=== PATIENT | female | born 2000 | race Caucasian/White ===

== ENCOUNTER → 2022-03-03 | Outpatient (CLI) | payer MEDICAID ==
--- NOTE | 2022-03-03 16:57 | US ---
EXAMINATION TYPE: Transabdominal DATE OF EXAM: 03/03/2022 4:32 PM COMPARISON: NONE CLINICAL HISTORY: Z36.89 Confirm gestational age and viability. Confirm dates EXAM PERFORMED: Transabdominal (TA) EXAM MEASUREMENTS: GESTATIONAL AGE / DATING Physician Established: Not yet established Dates by LMP: (12 weeks/6 days) EDC: 09/09/2022 Dates by First Scan: No previous this is first scan Dates by Current Scan for: (12 weeks/4 days) EDC: 09/11/2022 MATERNAL ANATOMY Uterus: 12.5 x 6.4 x 7.4 cm Right Ovary: 3.5 x 2.3 x 2.7 cm Left Ovary: 2.2 x 1.9 x 2.2 cm Post CDS / Adnexa: wnl Presence of free fluid: no Presence of corpus luteal cyst: no Presence of subchorionic bleed: no GESTATION / SURVEY CRL: 6.21 cm (12 weeks/4 days) Heart Rate: 157 bpm Rhythm: Normal IUP: Viable IUP IMPRESSION: Single viable intrauterine .
== END | disposition home or self-care (01) ==
LOC: RADUSWWP 16:06
PROVIDERS: ATTEND Obstetrics & Gynecology
DX: Z36.89 Encounter for other specified antenatal screening (principal); Z3A.12 12 weeks gestation of pregnancy
CPT/HCPCS: 76801

== ENCOUNTER → 2022-03-08 | Outpatient (CLI) | payer MEDICAID ==
[2022-03-09 01:37] LABS: HCT 37.7 % (37.2-46.3); HGB 12.3 g/dL (12.0-15.0); MCH 29.2 pg (27.0-32.0); MCHC 32.6 g/dL (32.0-37.0); MCV 89.5 fL (80.0-97.0); Mean Platelet Volume 10.4 fL (9.5-12.2); NRBC Per 100 WBC 0 /100 WBCS (0.0-0.0); Platelet Count 334 X 10*3/uL (140-440); RBC 4.21 X 10*6/uL (4.10-5.20); RDW 12.2 % (11.5-14.5); WBC 11.65 X 10*3/uL (4.50-10.00)
[2022-03-09 03:00] LABS: African American GFR (CKD) 140.1 (60.0-200.0); Non-African American GFR(CKD) 120.9 (60.0-200.0); T4, Free (Free Thyroxine) 1.34 ng/dL (0.800-1.800)
[2022-03-09 04:06] LABS: Hepatitis BE Antigen Nonreactive (Nonreacitve)
[2022-03-09 04:23] LABS: Toxoplasma Antibody (IgG) <3.0 IU/mL (<7.2); Toxoplasma Antibody (IgM) <3.0 AU/mL (<8.0)
[2022-03-09 21:28] LABS: HIV 2 AB Non-Reactive (Non-Reactive); HIV AB P24 Non-Reactive (Non-Reactive); HIV P24 AG Non-Reactive (Non-Reactive)
== END | disposition home or self-care (01) ==
LOC: LABWHC1 15:07
PROVIDERS: ATTEND Obstetrics & Gynecology
DX: Z34.01 Encounter for supervision of normal first pregnancy, first trimester (principal); Z3A.00 Weeks of gestation of pregnancy not specified
CPT/HCPCS: 36415; 82565; 82947; 84439; 84443; 85027; 86762; 86777; 86778; 86780; 86850; 86900; 86901; 87350; 87390

== ENCOUNTER → 2022-04-17 | Outpatient (CLI) | payer MEDICAID ==
--- NOTE | 2022-04-18 07:34 | US ---
EXAMINATION TYPE: US OB anatomy transabd DATE OF EXAM: 04/17/2022 COMPARISON: US 03/03/2022 HISTORY: O36.62X0 LARGE FOR DATES Large for dates. . TECHNIQUE: Transabdominal (TA) EXAM MEASUREMENTS: GESTATIONAL AGE / DATING Physician Established: (19 weeks/2 days) EDC: 09/09/2022 Dates by LMP: (19 weeks/2 days) EDC: 09/09/2022 Dates by First Scan: (19 weeks/0 days) EDC: 09/11/2022 Dates by Current Scan for: (19 weeks/2 days) EDC: 09/09/2022 SURVEY IUP: Single PLACENTA: Anterior. Hypoechoic area seen lower placenta measuring 3.5 cm. PREVIA: No previa ROBIN: 12.3 cm Normal CERVICAL LENGTH (transabdominal: norm > 3.0cm): 3.9 cm BIOMETRY PRESENTATION: Variable LIE: Transverse lie with head maternal Left BPD: 4.4 cm 19 weeks / 3 days HC: 17.6 cm 20 weeks / 1 day AC: 14.7 cm 20 weeks / 0 days FL: 2.4 cm 17 weeks / 2 days ESTIMATED WEIGHT IN GRAMS: 261 grams ESTIMATED WEIGHT IN LBS/OZ: 0 lbs. 9 oz. WEIGHT PERCENTAGE BASED ON ESTABLISHED DATE: 23 % HC/AC: 1.20 Normal FL/AC: 16% HEART RATE: 144 bpm RHYTHM: Normal ANATOMY SEEN (within normal limits): * Lateral Vent (< 1 cm) 0.67 cm * Cisterna Magna (< 1.1 cm) 0.54 cm * Nuchal Fold (< 0.6 cm) 0.30 cm * Cerebellum (varies with age) 2.07 cm Choroid Plexus (bilateral) Midline Falx Cavus Septi Pellucidi Four Chamber Heart Stomach Situs Nose / Lips Diaphragm Kidneys (bilateral) Bladder Cord Insert Three Vessel Cord Longitudinal Spine Transverse Spine Arms (bilateral) Legs (bilateral) ANATOMY SEEN (does not appear within normal limits): Internal echoes visualized within the stomach. Femur length appears smaller in size in comparison to other growth parameters. ANATOMY NOT SEEN: Outflow tracts: LVOT/RVOT Patient was given scheduling number for an OB call back for additional imaging. Two techs scanned. IMPRESSION: 1. Single live intrauterine with position and establish gestational age of 19 weeks 2 days. Current ultrasound biometry is concordant (19 weeks 3 days) placing the child at the 23rd percentile for weight. 2. A few structures on the survey were suboptimally visualized due to position (LVOT/RVOT). Additionally there is nonspecific internal echoes visualized within the s tomach and femur length appears smaller in size in comparison to other growth parameters. Rescan for suboptimal anatomy can be performed in one to 2 weeks.
== END | disposition home or self-care (01) ==
LOC: RADUSWWP 16:03
PROVIDERS: ATTEND Obstetrics & Gynecology
DX: O36.62X0 Maternal care for excessive fetal growth, second trimester, not applicable or unspecified (principal); Z3A.19 19 weeks gestation of pregnancy
CPT/HCPCS: 76811

== ENCOUNTER → 2022-04-25 | Outpatient (CLI) | payer MEDICAID ==
[2022-04-27 08:56] LABS: Alpha Fetoprotein 93.2 ng/mL; B-HCG (M.O.M.) 4.37; Human Chorionic Gonadotropin 105.7 IU/mL; Inhibin A (M.O.M.) 3.31; Interpretation SeeBelow; Maternal Age at EDD (Yrs) 24; Smoker No; Unconjugated Estriol (M.O.M.) 1.05
== END | disposition home or self-care (01) ==
LOC: LABWHC1 20:57
PROVIDERS: ATTEND Obstetrics & Gynecology
DX: Z34.02 Encounter for supervision of normal first pregnancy, second trimester (principal); Z3A.00 Weeks of gestation of pregnancy not specified
CPT/HCPCS: 36415; 82105; 82677; 84702; 86336

== ENCOUNTER → 2022-05-03 | Outpatient (CLI) | payer MEDICAID ==
--- NOTE | 2022-05-03 12:49 | US ---
EXAMINATION TYPE: US OB Call Back DATE OF EXAM: 05/03/2022 COMPARISON: NONE CLINICAL HISTORY: Z36.87 ENCOUNTER FOR SCREENING. call back for heart, femur and stomach GESTATIONAL AGE / DATING Dates by Initial Survey Scan: (21 weeks/2 days) EDC: 09/09/2022 HEART RATE: 144 bpm RHYTHM: Normal ANATOMY SEEN (second anatomic survey look): Outflow tracts:? LVOT/RVOT- seen, wnl Stomach: appears wnl today Femur length still measuring 2 weeks behind = 19w0d Patient is going for level 3 US at speciality clinic IMPRESSION: 1. Femur length reported 2 weeks behind. Attention on tertiary care ultrasound at specialty clinic. 2. Gastric lumen appears within normal limits.
== END | disposition home or self-care (01) ==
LOC: RADUSWWP 11:08
PROVIDERS: ATTEND Obstetrics & Gynecology
DX: Z36.87 Encounter for antenatal screening for uncertain dates (principal); Z3A.21 21 weeks gestation of pregnancy

== ENCOUNTER → 2022-05-25 | Outpatient (CLI) | payer MEDICAID ==
[2022-05-25 14:30] LABS: HCT 31.7 % (37.2-46.3); HGB 10.7 g/dL (12.0-15.0); MCH 30.7 pg (27.0-32.0); MCHC 33.8 g/dL (32.0-37.0); MCV 90.8 fL (80.0-97.0); Mean Platelet Volume 9.5 fL (9.5-12.2); NRBC Per 100 WBC 0 /100 WBCS (0.0-0.0); Platelet Count 364 X 10*3/uL (140-440); RBC 3.49 X 10*6/uL (4.10-5.20); RDW 12.5 % (11.5-14.5); WBC 10.74 X 10*3/uL (4.50-10.00)
== END | disposition home or self-care (01) ==
LOC: LABWHC1 09:08
PROVIDERS: ATTEND Obstetrics & Gynecology
DX: Z34.03 Encounter for supervision of normal first pregnancy, third trimester (principal); Z3A.00 Weeks of gestation of pregnancy not specified
CPT/HCPCS: 36415; 82950; 85027

== ENCOUNTER 2022-08-16 10:46 | Outpatient (CLI) | payer MEDICAID ==
[2022-08-16 11:31] VITALS: BP 131/65; PULSE 83; RESP 16; TEMP 97.2
--- NOTE | 2022-08-17 21:50 | P.MSEPDOC ---
Presenting Problems - Arrival Data Date of Arrival on Unit: 08/16/22 Time of Arrival on Unit: 10:46 Mode of Transport: Ambulatory - Complaint OB-Reason for Admission/Chief Complaint: NST Comment: diagnosis Q04.0 bi weekly nst, nst reactive and pt dcd home Medical History - Information : 1 Para: 0 Term: 0 : 0 Abortions: Spontaneous or Elective: 0 Number of Living Children: 0 - Gestational Age Gestational Age by EDWARD (wks/days): 36 Weeks and 4 Days - History Complications: Other Comment: possible down syndrome as well as aortic coarctation Review of Systems - Review of Systems Constitutional: No problems Breast: No problems ENT: No problems Cardiovascular: No problems Respiratory: No problems Gastrointestinal: No problems Genitourinary: No problems Musculoskeletal: No problems Neurological: No problems Skin: No problems Vital Signs - Temperature Temperature: 97.2 F Temperature Source: Temporal Artery Scan - Pulse Right Brachial Pulse Rate: 83 Pulse Assessment Method: Automatic Cuff - Respirations Respiratory Rate: 16 Oxygen Delivery Method: Room Air - Blood Pressure Right Arm Blood Pressure: 131/65 Blood Pressure Mean: 87 Blood Pressure Source: Automatic Cuff Medical Screen Scoring - Assessment - Baby A Baseline FHR: 125 Heart Rate - NICHD Category: Category I (Normal) NST: Reactive Physician Notification - Physician Notified Physician Notified Date: 08/16/22 Physician Notified Time: 11:00 Physician: Dr Tania Rock Order Received: Yes (dc home) Maternal Triage Index - Scheduled/Requesting Priority 5 Scheduled/Requesting Priority 5: Yes Criteria Met for Priority 5: biweekly nst Disposition - Disposition OB Disposition: Discharge to home Discharge Date: 08/16/22 Discharge Time: 11:30 I agree with the RN Medical Screening Exam: Yes Case reviewed; plan agreed upon as documented in EMR&OBIX.: Yes Diagnosis: CONGENITAL MALFORMATIONS OF CORPUS CALLOSUM
== END 2022-08-16 11:31 | disposition home or self-care (01) ==
LOC: FBPOP 10:46
PROVIDERS: ATTEND Obstetrics & Gynecology
DX: O35.01 Maternal care for (suspected) central nervous system malformation or damage in fetus, agenesis of the corpus callosum (principal); Z3A.36 36 weeks gestation of pregnancy
CPT/HCPCS: 59025

== ENCOUNTER 2022-08-18 04:04 | Outpatient (CLI) | payer MEDICAID ==
[2022-08-18 04:58] VITALS: BP 140/75; PULSE 99; RESP 16; TEMP 97.7
--- NOTE | 2022-08-29 19:34 | P.MSEPDOC ---
Presenting Problems - Arrival Data Date of Arrival on Unit: 08/18/22 Time of Arrival on Unit: 04:04 Mode of Transport: Ambulatory - Complaint OB-Reason for Admission/Chief Complaint: Possible Onset of Labor Comment: nehemias 10-13 minutes at home, denies SROM, states small bloody show Medical History - Information : 1 Para: 0 Term: 0 : 0 Abortions: Spontaneous or Elective: 0 Number of Living Children: 0 - Gestational Age Gestational Age by EDWARD (wks/days): 36 Weeks and 6 Days - History Complications: Other Comment: Pt needs to deliver at [place] due to cardiac and brain abnormalities Review of Systems - Review of Systems Constitutional: No problems Breast: No problems ENT: No problems Cardiovascular: No problems Respiratory: No problems Gastrointestinal: No problems Genitourinary: No problems Musculoskeletal: No problems Neurological: No problems Skin: No problems Vital Signs - Temperature Temperature: 97.7 F Temperature Source: Temporal Artery Scan - Pulse Right Brachial Pulse Rate: 99 Pulse Assessment Method: Pulse Oximetry - Respirations Respiratory Rate: 16 Oxygen Delivery Method: Room Air O2 Sat by Pulse Oximetry: 96 - Blood Pressure Right Arm Supine Blood Pressure: 140/75 Blood Pressure Mean: 96 Blood Pressure Source: Automatic Cuff Medical Screen Scoring - Cervical Exam Dilation (cm): 3 Effacement (%): 80 Station: -1 Membranes: Intact - Uterine Contractions Frequency From (mins): 2 Frequency To (mins): 5 Duration From (seconds): 40 Duration To (seconds): 80 Intensity: Moderate Resting: Soft to palpation - Assessment - Baby A Baseline FHR: 125 Heart Rate - NICHD Category: Category I (Normal) NST: Reactive Physician Notification - Physician Notified Physician Notified Date: 08/18/22 Physician Notified Time: 04:22 Physician: Simona Marin Order Received: Yes - Notification Comment Comment: Patient may have option to drive to [facility] for delivery or wait for ambulance transfer, patient elected to have S/O drive her to [place], patient given phone number to labor and delivery [facility] and [facility], and instructed not to stop anywhere and nothing by mouth Maternal Triage Index - Maternal Triage Index Presenting for scheduled procedure w/no complaint: No - Stat/Priority 1 Stat Priority 1: No - Urgent/Priority 2 Urgent Priority 2: No - Prompt/Priority 3 Prompt Priority 3: Yes Criteria Met for Priority 3: signs of active labor >34 weeks Disposition - Disposition OB Disposition: Discharge to home, Written follow up instructions reviewed Discharge Date: 08/18/22 Discharge Time: 04:30 I agree with the RN Medical Screening Exam: Yes Case reviewed; plan agreed upon as documented in EMR&OBIX.: Yes Comments: Patient was noted to be in early labor and was given option of transfer to [facility] or drive with her significant other. She elected to drive with her significant other since she is supposed to have a delivery due to congenital defects on baby and needs NICU. Category 1 tracing noted. Diagnosis: LABOR WITHOUT DELIVERY, THIRD TRIMESTER
== END 2022-08-18 04:30 | disposition home or self-care (01) ==
LOC: FBPOP 04:04
PROVIDERS: ATTEND Obstetrics & Gynecology
DX: O60.03 Preterm labor without delivery, third trimester (principal); Z3A.36 36 weeks gestation of pregnancy
CPT/HCPCS: 59025; 99213

== ENCOUNTER → 2023-03-19 | Outpatient (CLI) | payer MEDICAID | END | disposition home or self-care (01) | LOC: RADXRMAIN 11:45 | PROVIDERS: ATTEND Family Medicine | DX: Z53.9 Procedure and treatment not carried out, unspecified reason (principal) | CPT/HCPCS: 84443 ==

== ENCOUNTER → 2023-04-04 | Outpatient (CLI) | payer MEDICAID ==
--- NOTE | 2023-04-04 23:34 | US ---
EXAMINATION TYPE: US thyroid st tissue head/neck DATE OF EXAM: 04/04/2023 COMPARISON: NONE CLINICAL INDICATION: Female, 22 years old with history of E04.9 GOITER; Goiter GLAND SIZE: Right Lobe: 5.1 x 1.8 x 2.4 cm Overall Parenchyma: homogenous Left Lobe: 4.9 x .8 x 1.3 cm Overall Parenchyma: homogeneous Isthmus Thickness: 0.1 cm NODULES RIGHT: # of nodules measured on right: 1 1. 3.1 X 1.5 x 2.4 cm, mid medial, mixed cystic and solid, anechoic nodule, which is wider than shuan l, with smooth margins, without echogenic foci. TR 1 Prior size: no previous LEFT: # of nodules measured on left: 0 ISTHMUS: # of nodules measured in the isthmus: 0 Bilateral neck scanned, no evidence of lymphadenopathy. IMPRESSION: Benign findings thyroid. 2017 ACR TI-RADS LEVEL: TR-RADS 1 - BENIGN: No FNA *Highest TI-RADS level nodule reported
== END | disposition home or self-care (01) ==
LOC: RADUSWWP 08:44
PROVIDERS: ATTEND Family Medicine
DX: E04.1 Nontoxic single thyroid nodule (principal); E04.9 Nontoxic goiter, unspecified
CPT/HCPCS: 76536

== ENCOUNTER → 2023-10-31 | Outpatient (CLI) | payer MEDICAID ==
[2023-10-31 17:08] LABS: Appearance,Urine Clear (Clear); Bilirubin,Urine Negative (Negative); Blood,Urine Negative (Negative); Color,Urine Yellow (Yellow); Ketones,Urine Negative (Negative); Nitrite,Urine Negative (Negative); PH, Urine 5.5; Specific Gravity,Urine 1.021 (1.001-1.030); Urobilinogen,Urine 0.2 E.U./DL
[2023-10-31 17:15] LABS: Bacteria,Urine Trace (None Seen)
[2023-10-31 17:17] LABS: ALT 15 U/L (8-44); AST 15 U/L (13-35); Albumin 4.8 g/dL (3.8-4.9); Albumin/Globulin Ratio 2.09 Ratio (1.60-3.17); Alkaline Phosphatase 91 U/L (41-126); BUN/Creat Ratio 14.86 Ratio (12.00-20.00); Blood Urea Nitrogen 10.4 mg/dL (9.0-27.0); Calcium 9.9 mg/dL (8.7-10.3); Carbon Dioxide 26.4 mmol/L (21.6-31.8); Chloride 104 mmol/L (96-109); Globulin 2.3 g/dL (1.6-3.3); Glucose 84 mg/dL (70-110); Potassium 4.3 mmol/L (3.5-5.5); Sodium 142 mmol/L (135-145); Total Bilirubin 0.8 mg/dL (0.3-1.2); Total Protein 7.1 g/dL (6.2-8.2)
== END | disposition home or self-care (01) ==
LOC: LABWHC1 13:33
PROVIDERS: ATTEND Family Medicine
DX: E04.9 Nontoxic goiter, unspecified (principal)
CPT/HCPCS: 36415; 80053; 81001; 84443

== ENCOUNTER → 2024-06-30 | Outpatient (CLI) | payer MEDICAID ==
--- NOTE | 2024-07-02 23:21 | US ---
EXAMINATION TYPE: US thyroid st tissue head/neck DATE OF EXAM: 06/30/2024 COMPARISON: US CLINICAL INDICATION: Female, 23 years old with history of RIGHT THYROID NODULE E04.1; F/U right thy n odule TECHNIQUE: Grayscale and color Doppler imaging of the thyroid gland. FINDINGS: GLAND SIZE: Right Lobe: 5.7 x 2.2 x 2.5 cm Overall Parenchyma: homogeneous Left Lobe: 4.7 x 1.3 x 1.6 cm Overall Parenchyma: homogeneous Isthmus Thickness: 0.2 cm NODULES RIGHT: # of nodules measured on right: 1 1. 4.0 X 1.6 x 2.7 cm, mid, mixed cystic and solid, hypoechoic nodule, which is wider than tall, wi th smooth margins, without echogenic foci. TR 3 Prior size: 3.1 x 1.5 x 2.4 cm LEFT: # of nodules measured on left: 0 ISTHMUS: # of nodules measured in the isthmus: 0 Bilateral neck scanned, no evidence of lymphadenopathy. Slight increase in size of nodule right lobe. IMPRESSION: 1. Mildly suspicious nodule right lobe thyroid. Consider fine-needle aspiration 2017 ACR TI-RADS LEVEL: TR-RADS 3 - Mildly Suspicious: Follow if > 1.5 cm, FNA if > 2.5 cm *Highest TI-RADS level nodule reported [email or web address] [facility], , 07/02/2024 11:18 PM
== END | disposition home or self-care (01) ==
LOC: RADUSWWP 14:34
PROVIDERS: ATTEND Internal Medicine
DX: E04.1 Nontoxic single thyroid nodule (principal)
CPT/HCPCS: 76536

== ENCOUNTER 2024-09-15 07:49 | Outpatient (CLI) | payer MEDICAID ==
[2024-09-15 08:32] LABS: Appearance,Urine Cloudy (Clear); Bacteria,Urine Many /hpf; Bilirubin,Urine Negative (Negative); Blood,Urine Negative (Negative); Color,Urine Yellow; Glucose,Urine (UA) Negative (Negative); Ketones,Urine 1+ (Negative); Leukocyte Esterase,Urine Moderate (Negative); Mucus,Urine Many /hpf; Nitrite,Urine Negative (Negative); PH, Urine 5.5 (5.0-8.0); Protein,Urine Trace (Negative); RBC,Urine 3 /hpf (0-5); Specific Gravity,Urine 1.025 (1.001-1.035); Squamous Epithelial Cell,Urine 21 /hpf (0-4); Urobilinogen,Urine <2.0 mg/dL (<2.0); WBC,Urine 11 /hpf (0-5)
[2024-09-15] MEDS: DEXTROSE 5%-LACTATED RINGERS 1,000 ML IV ONE (09:09)
[2024-09-15] MEDS: FAMOTIDINE 20 MG/2 ML VIAL IV STA (09:10)
[2024-09-15] MEDS: ONDANSETRON 4 MG/2 ML VIAL IVP STA (09:10)
[2024-09-15 09:14] LABS: Basophils % (A) 0 %; Eosinophils # (A) 0.1 k/uL (0-0.7); Eosinophils % (A) 1 %; HCT 36.4 % (34.0-46.0); Lymphocytes # (A) 0.4 k/uL (1.0-4.8); Lymphocytes % (A) 3 %; MCH 30.3 pg (25.0-35.0); MCHC 32.9 g/dL (31.0-37.0); Mean Platelet Volume 6.8; Monocytes # (A) 0.3 k/uL (0-1.0); Monocytes % (A) 2 %; Neutrophils # (A) 11.4 k/uL (1.3-7.7); Neutrophils % (A) 93 %; Platelet Count 271 k/uL (150-450); RBC 3.96 m/uL (3.80-5.40); RDW 12.7 % (11.5-15.5); WBC 12.3 k/uL (3.8-10.6)
[2024-09-15 11:02] VITALS: BP 118/71; PULSE 122; RESP 17; TEMP 96.8
[2024-09-15] MEDS: LOPERAMIDE 2 MG CAP PO STA (11:03)
--- NOTE | 2024-09-19 16:02 | P.MSEPDOC ---
Presenting Problems - Arrival Data Date of Arrival on Unit: 09/15/24 Time of Arrival on Unit: 07:49 Mode of Transport: Ambulatory - Complaint OB-Reason for Admission/Chief Complaint: Acute Nausea/Vomiting Comment: pt presents to triage for n/v and diarreha since last night, Medical History - Information : 2 Para: 1 Term: 1 : 0 Abortions: Spontaneous or Elective: 0 Number of Living Children: 1 - Gestational Age Gestational Age by EDWARD (wks/days): 26 Weeks and 5 Days - History Complications: Prior Review of Systems - Review of Systems Constitutional: No problems Breast: No problems ENT: No problems Cardiovascular: No problems Respiratory: No problems Gastrointestinal: Diarrhea Genitourinary: No problems Musculoskeletal: No problems Neurological: No problems Skin: No problems Vital Signs - Temperature Temperature: 96.8 F Temperature Source: Temporal Artery Scan - Pulse Right Brachial Pulse Rate: 122 Pulse Assessment Method: Automatic Cuff - Respirations Respiratory Rate: 17 Oxygen Delivery Method: Room Air O2 Sat by Pulse Oximetry: 98 - Blood Pressure Right Arm Blood Pressure: 118/71 Blood Pressure Mean: 86 Blood Pressure Source: Automatic Cuff Medical Screen Scoring - Uterine Contractions Resting: Soft to palpation - Assessment - Baby A Baseline FHR: 135 Heart Rate - NICHD Category: Category I (Normal) Physician Notification - Physician Notified Physician Notified Date: 09/15/24 Physician Notified Time: 08:45 Physician: Afua Wagner Order Received: Yes Maternal Triage Index - Maternal Triage Index Presenting for scheduled procedure w/no complaint: No - Stat/Priority 1 Stat Priority 1: No - Urgent/Priority 2 Urgent Priority 2: No - Prompt/Priority 3 Prompt Priority 3: No - Non-Urgent/Priority 4 Non-Urgent Priority 4: Yes Criteria Met for Priority 4: pt presents to triage for n/v and diarreha since last night, Disposition - Disposition OB Disposition: Triage, Discharge to home, Written follow up instructions reviewed Discharge Date: 09/15/24 Discharge Time: 10:35 I agree with the RN Medical Screening Exam: Yes Physician's MSE Comment: I have neither seen nor examined the patient Case reviewed; plan agreed upon as documented in EMR&OBIX.: Yes Diagnosis: VOMITING OF , UNSPECIFIED
== END 2024-09-15 10:35 | disposition home or self-care (01) ==
LOC: FBPOP 07:49
PROVIDERS: ATTEND Obstetrics & Gynecology
DX: O21.9 Vomiting of pregnancy, unspecified (principal); Z3A.26 26 weeks gestation of pregnancy
CPT/HCPCS: 99214; 96361; 96374; 96375; 85025; 81001; J2405; J3490

== ENCOUNTER 2024-12-10 06:00 | Inpatient (IN) | payer MEDICAID ==
[2024-12-10] MEDS ORDERED: TERBUTALINE 1 MG/ML VIAL SQ PRN (06:16)
[2024-12-10] MEDS ORDERED: miSOPROStoL 200 MCG TAB PO PRN (06:16)
[2024-12-10] MEDS ORDERED: OXYTOCIN 10 UNIT/ML 1 ML VIAL IM PRN (06:16)
[2024-12-10] MEDS ORDERED: TRANEXAMIC 1,000 MG/100ML-NACL 1,000 MG in EMPTY BAG 1 BAG IV PRN (06:16)
[2024-12-10] MEDS ORDERED: CARBOPROST TROMETHAMINE 250 MCG/ML 1 ML AMP IM PRN (06:16)
[2024-12-10] MEDS ORDERED: miSOPROStoL 200 MCG TAB RECTAL PRN (06:16)
[2024-12-10] MEDS ORDERED: METHYLERGONOVINE 0.2 MG/ML 1 ML AMP IM PRN (06:16)
[2024-12-10] MEDS: LACTATED RINGERS 1,000 ML IV SCH (06:27)
[2024-12-10 06:31] LABS: Glucose,Whole Blood 94 mg/dL (70-110)
[2024-12-10] MEDS: OXYTOCIN 30 UNITS/500 ML NS 30 UNIT in SALINE 1 500ML.BAG IV SCH (06:35)
[2024-12-10 06:47] LABS: Basophils # (A) 0.06 10*3/uL (0.00-0.10); Basophils % (A) 0.5 %; Eosinophils # (A) 0.08 10*3/uL (0.04-0.35); Eosinophils % (A) 0.7 %; HCT 36.7 % (37.2-46.3); HGB 12.5 g/dL (12.0-15.0); MCH 30.7 pg (27.0-32.0); MCHC 34.1 g/dL (32.0-37.0); MCV 90.2 fL (80.0-97.0); Monocytes # (A) 0.77 10*3/uL (0.20-1.00); Monocytes % (A) 6.9 %; Neutrophils # (A) 6.92 10*3/uL (1.80-7.70); Platelet Count 250 10*3/uL (140-440); RBC 4.07 10*6/uL (4.10-5.20); RDW 12.8 % (11.5-14.5); WBC 11.17 10*3/uL (4.50-10.00)
--- NOTE | 2024-12-10 08:24 | P.HPOB ---
History of Present Illness H&P Date: 12/10/24 Chief Complaint: Medical induction of labor Ms. Napoles is a 24 year old at 39 weeks and 0 days with EDC of 12/17/2024 by 9 week US who presents for medical induction of labor for diet- controlled gestational diabetes. Her has otherwise been uncomplicated. THe fetus is estimated in the 58%ile based on a 37 week US, which would make the fetus now approximately 7#14oz. Obstetric history: 1 PTCS for cardiac concerns ([place] Syndrome) section was recommended work-up: blood type O positive, antibody screen negative, rubella i mmune, VDRL non-reactive, HBsAg negative, HIV negative, HCV Ab non-reactive, gonorrhea negative, chlamydia negative, abnormal 1 hr GTT > pt prefered to treat as GDM rather than complete 3 hr, GBS negative Past Medical History Past Medical History: No Reported History History of Any Multi-Drug Resistant Organisms: None Reported Additional Past Surgical History / Comment(s): c/s Past Anesthesia/Blood Transfusion Reactions: No Reported Reaction Past Psychological History: No Psychological Hx Reported Smoking Status: Never smoker Medications and Allergies Home Medications Medication Instructions Recorded Confirmed Type Vit No.179/Iron/Folic 1 tab PO DAILY 08/16/22 09/15/24 History [ Tablet] Allergies Allergy/AdvReac Type Severity Reaction Status Date / Time No Known Allergies Allergy Verified 12/10/24 06:15 Exam Vital Signs Pulse Resp BP Pulse Ox 12/10/24 06:22 101 H 16 119/70 97 Intake and Output 12/09/24 12/10/24 12/10/24 22:59 06:59 14:59 Other: Weight 68.039 kg Focused physical exam is performed. This is a healthy-appearing in no apparent distress. Breathing is non-labored. Abdomen is gravid and non-tender. Cervical exam is 3 cm, 90 effacement, -2 station. AROM is undertaken with clear fluid noted. Extremities non-tender and non-edematous. heart tones are Category I and tocometer is graphing contractions every 2-4 minutes. Results Result Diagrams: 12/10/24 06:30 Abnormal Lab Results - Last 24 Hours (Table) 12/10/24 Range/Units 06:30 WBC 11.17 H (4.50-10.00) 10*3/uL RBC 4.07 L (4.10-5.20) 10*6/uL Hct 36.7 L (37.2-46.3) % Immature Gran # 0.44 H (0.00-0.04) 10*3/uL Assessment and Plan Assessment: 24 year old at 39 weeks gestation being medically induced for GDMA1 Plan: Admit, clear liquid diet, pitocin per protocol, epidural prn, continuous EFM and tocometer.
[2024-12-10] MEDS ORDERED: SODIUM CHLORIDE 0.9% 250 ML BAG ONE (08:59)
[2024-12-10] MEDS ORDERED: ROPIVACAINE 5 MG/ML 30 ML VIAL ONE (08:59)
[2024-12-10] MEDS ORDERED: fentaNYL (PF) 50 MCG/ML 5 ML AMP ONE (08:59)
[2024-12-10] MEDS ORDERED: LANOLIN CREAM 1 GM TUBE TOPICAL PRN (12:35)
[2024-12-10] MEDS ORDERED: SIMETHICONE 80 MG CHEWABLE PO PRN (12:35)
[2024-12-10] MEDS ORDERED: BENZOCAINE/MENTHOL SPRAY 1 GM/SPRAY AEROSOL TOPICAL PRN (12:35)
[2024-12-10] MEDS ORDERED: ZOLPIDEM 5 MG TAB PO PRN (12:35)
[2024-12-10] MEDS ORDERED: HYDROCORTISONE 2.5% RECTAL CREAM 30 GM TUBE RECTAL PRN (12:35)
[2024-12-10] MEDS ORDERED: diphenhydrAMINE 50 MG/ML 1 ML VIAL IVP PRN ×2 (12:35)
[2024-12-10] MEDS ORDERED: diphenhydrAMINE 25 MG CAP PO PRN (12:35)
[2024-12-10] MEDS ORDERED: diphenhydrAMINE 50 MG CAP PO PRN (12:35)
--- NOTE | 2024-12-10 12:36 | P.PROBDLV ---
Vaginal Delivery Note - . Vaginal Delivery Note: DATE OF SERVICE: 12/10/2024 PROCEDURE: Normal Vaginal Delivery ATTENDING: Dr. Afua Wagner MD ESTIMATED BLOOD LOSS: 300 mL FINDINGS: VMI, Apgars 8/9. Weight 8 pounds and 13 ounces (4010 grams) PROCEDURE: Ms. Napoles is a 24 year old at 39 weeks presenting to labor and delivery for medical induction of labor for diet-controlled GDM. For further details, please review the admitting H&P. Pitocin was titrated per protocol. AROM was undertaken at 750 revealing clear amniotic fluid. She received epidural anesthesia per her request. The patient was completely dilated at 1107. She pushed effectively with category I heart tones. A viable male infant was delivered at 1204. The was placed on the maternal abdomen and bulb suctioned. The was noted to be spontaneously crying. Cord was clamped and cut after a 60-second delay. The infant was handed off to the pediatric team. Placenta was delivered whole with gentle cord traction at 1207. Oxytocin was started to facilitate uterine tone. Uterine fundus was found to be firm and below the umbilicus upon fundal massage. Thorough examination of the cervix, vagina, periurethral area, and perineum revealed bilateral superficial labial lacerations and a large second degree laceration. These areas were infiltrated with lidocaine. The second degree laceration was repaired with 2-0 Vicryl in the usual fashion and the labial lacerations were repaired with 3-0 Vicryl in an interrupted fashion. The patient is stable and allowed to begin the bonding process.
[2024-12-10] MEDS: LIDOCAINE 0.5% (PF) 5 MG/ML (50 ML SDV) SQ PRN (12:39)
[2024-12-10] MEDS: ACETAMINOPHEN TAB 500 MG TAB PO SCH (13:42)
[2024-12-10] MEDS: IBUPROFEN 800 MG TAB PO SCH (18:33)
[2024-12-11] MEDS: SENNOSIDES-DOCUSATE SODIUM 1 EACH TAB PO SCH (02:47)
[2024-12-11 06:12] LABS: Basophils # (A) 0.05 10*3/uL (0.00-0.10); Basophils % (A) 0.3 %; Eosinophils # (A) 0.02 10*3/uL (0.04-0.35); Eosinophils % (A) 0.1 %; HCT 30.8 % (37.2-46.3); HGB 10.3 g/dL (12.0-15.0); Lymphocytes # (A) 2.34 10*3/uL (0.90-5.00); Lymphocytes % (A) 13.2 %; MCH 30.5 pg (27.0-32.0); MCHC 33.4 g/dL (32.0-37.0); MCV 91.1 fL (80.0-97.0); Mean Platelet Volume 10.5 fL (9.5-12.2); Monocytes # (A) 1.35 10*3/uL (0.20-1.00); Monocytes % (A) 7.6 %; Neutrophils # (A) 13.75 10*3/uL (1.80-7.70); Neutrophils % (A) 77.4 %; Platelet Count 200 10*3/uL (140-440); RBC 3.38 10*6/uL (4.10-5.20); RDW 12.9 % (11.5-14.5); WBC 17.75 10*3/uL (4.50-10.00)
--- NOTE | 2024-12-11 10:49 | P.PNOBGVD ---
Subjective - Subjective Principal diagnosis: s/p Interval history: The patient is doing well this morning and had no acute events overnight. She has no complaints this morning. She reports minimal lochia, passing flatus, voiding without difficulty, ambulating, and eating/drinking without nausea or vomiting. She is her without difficulty. She denies chest pain, shortness of breathing, fevers, or chills overnight. She denies pain or swelling in the legs. Patient reports: Reports appetite normal, Reports voiding normally, Reports pain well controlled, Reports ambulating normally : other (in nursery for respiratory distress) Objective - Latest Vital Signs Latest vital signs: Vital Signs Temp Pulse Resp BP Pulse Ox 12/11/24 08:00 97.9 F 98 15 120/79 12/10/24 23:58 98.2 F 95 16 98/57 97 12/10/24 20:00 98.6 F 92 16 116/79 97 12/10/24 16:06 98.5 F 97 16 121/68 96 12/10/24 14:40 82 16 120/62 12/10/24 14:25 92 16 121/72 12/10/24 14:10 82 16 121/63 12/10/24 13:55 88 16 121/62 12/10/24 13:40 81 16 121/59 12/10/24 13:25 94 16 122/59 12/10/24 13:10 105 H 16 122/67 12/10/24 12:55 83 16 124/67 12/10/24 12:40 98.1 F 96 18 124/64 99 Intake and Output 12/10/24 12/11/24 12/11/24 22:59 06:59 14:59 Intake Total 480 480 Balance 480 480 Intake: Oral 480 480 Other: # Voids 1 1 - Exam Extremities: Present: normal Abdomen: Present: normal appearance, soft Uterus: Present: normal, firm - Labs Labs: Abnormal Lab Results - Last 24 Hours (Table) 12/11/24 Range/Units 05:02 WBC 17.75 H (4.50-10.00) 10*3/uL RBC 3.38 L (4.10-5.20) 10*6/uL Hgb 10.3 L (12.0-15.0) g/dL Hct 30.8 L (37.2-46.3) % Immature Gran # 0.24 H (0.00-0.04) 10*3/uL Neutrophils # 13.75 H (1.80-7.70) 10*3/uL Monocytes # 1.35 H (0.20-1.00) 10*3/uL Eosinophils # 0.02 L (0.04-0.35) 10*3/uL Assessment and Plan Assessment: 24 year old now PPD#1 s/p Plan: 1. . Meeting all milestones appropriately. VSS, Hgb stable. 2. Viable male infant. In the nursery for respiratory distress. Will need a circumcision prior to discharge home. Dispo: Anticipate discharge home tomorrow.
[2024-12-11] MEDS: ACETAMINOPHEN TAB 500 MG TAB PO SCH (23:24)
[2024-12-12 08:01] VITALS: BP 89/53; PULSE 59; RESP 14; TEMP 98.5
== END 2024-12-12 14:45 | disposition home or self-care (01) | DRG 807 ==
LOC: 4FBP 06:06
PROVIDERS: ADMIT Obstetrics & Gynecology; ATTEND Obstetrics & Gynecology
PROC: 10E0XZZ Delivery of Products of Conception, External Approach (ICD-10-PCS; principal; 2024-12-10)
PROC: 3E033VJ Introduction of Other Hormone into Peripheral Vein, Percutaneous Approach (ICD-10-PCS; principal; 2024-12-10)
PROC: 10907ZC Drainage of Amniotic Fluid, Therapeutic from Products of Conception, Via Natural or Artificial Opening (ICD-10-PCS; principal; 2024-12-10)
PROC: 0KQM0ZZ Repair Perineum Muscle, Open Approach (ICD-10-PCS; principal; 2024-12-10)
DX: O24.420 Gestational diabetes mellitus in childbirth, diet controlled (principal); Z37.0 Single live birth; O34.219 Maternal care for unspecified type scar from previous cesarean delivery; O70.1 Second degree perineal laceration during delivery; Z3A.39 39 weeks gestation of pregnancy
CPT/HCPCS: 85025; 86850; 86900; 86901